=== PATIENT | male | born 1955 | race Caucasian/White ===

== ENCOUNTER 2024-01-17 08:03 | Emergency (ER) | payer OTHER, SELFPAY ==
--- NOTE | ~2024-01-17 | CT_ITS ---
EXAMINATION: CT CERVICAL SPINE WITHOUT CONTRAST CLINICAL INFORMATION: Left-sided neck pain. COMPARISON: None available. TECHNIQUE: Contiguous axial images through the cervical spine from the skull base to the thoracic inlet using 3 mm collimation with bone and soft tissue algorithm. Sagittal and coronal reformatted images acquired. This CT examination was performed using dose optimization techniques as appropriate, variously including the following: *Automated exposure control *Adjustment of mA and/or kV according to patient size (this includes techniques or standardized protocols for targeted exams where dose is matched to indication/reason for exam; i.e. extremities or head) *Use of iterative reconstruction technique DLP: 618 mGy-cm FINDINGS: Craniocervical junction is intact. C1 is intact. C2 is intact. C3 is intact. C4 is intact. C5 is intact. C6 is intact. C7 is intact. Marginal osteophyte formation at C4-5. Status post anterior cervical fusion and corpectomy C5 C7. Ankylosis of C5-6. No gross malalignment. Bilateral facet joint hypertrophy more conspicuous at C4-5 and to a lesser extent C2-3. No prevertebral compartment hematoma. Calcified plaques in the carotid bulbs and both ICAs. CT/CT cervical spine wo IV con IMPRESSION: No acute fracture or trauma-related listhesis. Multilevel spondylosis more conspicuous at C4-5. Status post ACDF at C5 7. Atherosclerosis disease. Fleischner guidelines were followed. Electronically signed by: Christiano Zhou MD 01/17/2024 11:45 AM [facility]
[2024-01-17 08:09] VITALS: BP 148/78; PULSE 70; O2SAT 98
[2024-01-17 08:12] VITALS: BP 161/70; PULSE 82; RESP 16; TEMP 36.4; O2SAT 96
[2024-01-17 08:16] VITALS: BP 161/70; PULSE 71; RESP 16; TEMP 36.4; O2SAT 97; BMI 38.7
--- NOTE | 2024-01-17 08:23 | ECG_ITS ---
Test Reason : SHOULDER PAIN Blood Pressure : / mmHG Vent. Rate : 071 BPM Atrial Rate : 071 BPM P-R Int : 194 ms QRS Dur : 112 ms QT Int : 434 ms P-R-T Axes : 045 -34 010 degrees QTc Int : 471 ms Normal sinus rhythm Left axis deviation Low voltage QRS Inferior infarct , age undetermined Abnormal ECG No previous ECGs available Referred By: Ramila Hines Electronically Signed By:JOI BALBUENA MD
--- NOTE | 2024-01-17 08:29 | ED_ITS ---
HPI - Extremity Problem General Chief complaint: Extremity Injury, Upper Stated complaint: LT SHOULDER AND ARM PAIN Time Seen by Provider: 01/17/24 08:07 Source: patient, EMS and old records reviewed Mode of arrival: EMS Limitations: no limitations History of Present Illness ED Provider: MANISHA MCDONALD Narrative: 68 yo male with PMH of thoracic aortic aneurysm under surveillance 2.7cm, ROLAN, HTN prior cervical fusion 20 years ago he notes over the weekend he hit his head on a golf cart no LOC no headache now but it sort of crunched down. On Saturday he developed L neck pain radiating into the L shoulder which reminds him of his pruior neck pain. He denies numbness, weakness to me which is different from triage. He tried tylenol with no relief. MD Complaint: other (neck pain, shoulder pain) Onset (ago): day(s) (Saturday) Pain Consistency: intermittent Location: other (neck, L shoulder) Quality: stabbing Radiation: distal Relieving factors: immobilization Exacerbating factors: range of motion and palpation Associated symptoms: denies other symptoms Context: other Related Data Previous Rx's ?Medication ?Instructions ?Recorded diazepam 5 mg tablet (Valium) 5 mg PO TID PRN muscle spasm #10 01/17/24 tabs lidocaine 5 % topical patch 1 patch topical DAILY #30 ea 01/17/24 oxycodone 5 mg tablet 5 mg PO Q4H PRN pain #18 tabs 01/17/24 Allergies Allergy/AdvReac Type Severity Reaction Status Date / Time amoxicillin AdvReac Hives Verified 01/17/24 08:17 Review of Systems 2 Review of Systems: Constitutional : No Weight loss, No Fever, No Chills, ENT/Mouth : No Hearing loss, No Ear Pain, No Nasal Congestion, No Sinus Pain, No Hoarseness, No sore throat, No Rhinorrhea, No Swallowing Difficulty Cardiovascular : No Chest Pain, No SOB Respiratory : No Cough, No Dyspnea Gastrointestinal : No Nausea, No Vomiting, No Diarrhea, No abdominal Pain, No Hematochezia, No Melena Genitourinary : No Dysuria, No Urinary Frequency, No Hematuria, No Urinary Incontinence, Musculoskeletal : positive neck pain Skin : No Skin Lesions, No rash Neuro : No Weakness, No Numbness, No Paresthesias, no loss of bowel or bladder incontinence, no saddle anesthesia all other systems are reviewed are negative PMFSH Past Medical History Attestation statement: The following information was validated with the patient. Source: old records reviewed Medical History ROLAN (obstructive sleep apnea) HTN (hypertension) Cervical vertebral fusion Social History Social History (Updated 01/17/24 @ 08:34 by Ramila Hines DO) Alcohol intake: current Alcohol type: beer Patient Tobacco Use Status: Never used Tobacco Smoked in Last 30 Days: No Use of substances other than those prescribed or required for medical reasons: No Advance Directives: No Advance Directives Information Provided: Yes Do you have a plan to hurt others: No Plan Physical Exam 2 Vital Signs: Vital Signs: Last Vital Signs Temp 97.5 F 01/17/24 08:16 Pulse 69 01/17/24 10:47 Resp 16 01/17/24 10:47 BP 143/67 H 01/17/24 10:47 Pulse Ox 96 01/17/24 10:47 O2 Del Method Room Air 01/17/24 10:47 BMI result Body Mass Index 38.7 Appearance: Alert. Oriented X3. No acute distress. Eyes: Pupils equal, round and reactive to light. ENT: Pharynx normal. Neck: Normal inspection. L neck lateral ttp no mass seen, no rash, + spurlings CVS: Normal heart rate and rhythm. Pulses normal. Respiratory: No respiratory distress. Breath sounds normal. Abdomen: Soft and nontender. Skin: Skin warm and dry. Normal skin color. Normal skin turgor. Extremities: No lower extremity edema. 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 No motor deficit. No sensory deficit. Course Course Course Narrative: multiple rounds of medications initial morphine/valium after EMS 100mcg fentanyl IV tylenol/toradol IV dilaudid patient states he cannot lay down for CT scan as he goes into spasm on the L neck area. CT scan has tried to take him again he states he cannot do the CT scan I have ordered IV ativan at this point he has no neurologic compromise on exam, states he goes into spasm when he lays flat Reevaluation(s) Reevaluation #1: patient is feeling much better after medications he and will follow up with PCP to stay with patient today Medications Administered Discontinued Medications Generic Name Dose Route Start Last Admin Trade Name Thom PRN Reason Stop Dose Admin Diazepam 5 mg 01/17/24 09:02 01/17/24 09:06 Diazepam 5 Mg Tablet PO 01/17/24 09:03 5 mg ONCE ONE Administration Hydromorphone HCl 1 mg 01/17/24 10:27 01/17/24 10:44 Hydromorphone Hcl 1 Mg/Ml Syringe IVPUSH 01/17/24 10:28 1 mg ONCE ONE Administration Protocol Acetaminophen 1,000 mg in 100 mls @ 400 mls/hr 01/17/24 09:26 01/17/24 10:44 Ofirmev IV 01/17/24 09:40 Infused ONCE ONE Infusion Ketorolac Tromethamine 15 mg 01/17/24 09:26 01/17/24 09:51 Ketorolac Tromethamine 15 Mg/Ml Vial IVPUSH 01/17/24 09:27 15 mg ONCE ONE Administration Lorazepam 1 mg 01/17/24 10:58 01/17/24 11:15 Lorazepam 2 Mg/Ml Vial IVPUSH 01/17/24 10:59 1 mg STAT STA Administration Morphine Sulfate 15 mg 01/17/24 08:24 01/17/24 08:41 Morphine Sulfate Immed Release 15 Mg Tablet PO 01/17/24 08:25 15 mg ONCE ONE Administration Medical Decision Making Medical Decision Making MDM Narrative: 68 yo male with PMH of thoracic aortic aneurysm under surveillance 2.7cm, ROLAN, HTN prior cervical fusion 20 years ago here with c/o L neck pain and L shoulder pain - which radiates down possibly after COVID shot on Saturday vs crunching injury to the neck from golf cart. At this time labs, EKG, PO morphine and CT cervical spine to evaluate hardware. Differential Diagnosis Differential Diagnoses: The differential diagnosis associated with the presentation includes cervical radiculopathy, spasm Admission/Observation Consideration of admission/observation: Escalation of care including admission/observation considered feels much better no neurologic findings can follow up as outpatient Lab Data [facility] Lab Attestation statement: I reviewed the patient's lab results. 01/17/24 08:32 01/17/24 08:31 Labs: Lab Results 01/17/24 01/17/24 Range/Units 08:31 08:32 WBC 7.3 (4.8-10.8) X10*3/uL RBC 4.90 (4.60-5.80) X10*6/uL Hgb 15.9 (14.0-18.0) g/dl Hct 44.1 (42.0-52.0) % MCV 90.0 (80.0-98.0) fL MCH 32.4 (27.0-33.0) pg MCHC 36.1 H (31.0-36.0) g/dl RDW 11.7 (11.0-16.0) % Plt Count 209 (160-400) X10*3/uL MPV 9.9 (9.4-12.4) fL Immature Gran % (Auto) 0.3 (0.0-0.4) % Neut % (Auto) 79.8 H (45-73) % Lymph % (Auto) 12.2 L (20-40) % [place] % (Auto) 6.2 (2-11) % Eos % (Auto) 0.8 (0-4) % Baso % (Auto) 0.7 (0-2) % Lymph # (Auto) 0.9 L (1.2-4.9) X10*3/uL [place] # (Auto) 0.5 (0.1-1.2) X10*3/uL Eos # (Auto) 0.1 (0.0-0.4) X10*3/uL Baso # (Auto) 0.1 (0.0-0.2) X10*3/uL Abs Immat Gran (auto) 0.02 (0.00-0.03) X10*3/uL Absolute Neuts (auto) 5.8 (2.0-8.3) x10*3/uL Absolute Nucleated RBC 0.000 (0.0-0.012) X10*3/uL Nucleated RBC % (auto) 0.0 (0.0-0.2) /100WBC Sodium 142 (135-145) mmol/L Potassium 4.1 (3.3-5.1) mmol/L Chloride 108 (96-108) mmol/L Carbon Dioxide 21 L (22-29) mmol/L Anion Gap 17 (12-20) BUN 14 (9-16) mg/dL Creatinine 0.87 (0.5-1.4) mg/dL Estim Creat Clear Calc 104.8 Estimated GFR > 60 Random Glucose 116 H (60-115) mg/dL Calcium 9.4 (8.4-10.2) mg/dL Magnesium 2.2 (1.6-2.6) mg/dL Troponin I High Sens 3.3 (<3.5-35.0) ng/L Independent Interpretation I performed an independent interpretation of an: EKG and CT Scan (hardware intact) Interpretation: Rate: 71 Rhythm: NSR [place]: left Normal P waves. Normal KAREN. Normal QRS complex. ST T wave : no SAMANTHA, prior old inf [place], q waves III inverted t waves III qTC: 471 prior studies: no acute ischemia The study has been interpreted contemporaneously by me. . Radiology Impression Discussion of test interpretation with radiology: I have reviewed the radiologist's reading. Independent Historian Clinical information obtained from an independent historian. History obtained from or confirmed by: EMS External Record Review External record reviewed: Outpatient record Prescription Management I considered prescription management with: Pain Medication Discharge Plan Discharge Clinical Impression: Cervical radiculopathy, Neck muscle spasm Patient Disposition: Home, Self-Care Instructions: Cervical Radiculopathy (ED), Muscle Spasm (ED) Additional Instructions: ekg reassuring labs reassuring including cardiac marker CT scan does not show any hardware failure no motrin until 6pm tonight okay to take tylenol at 6pm tonight please call your primary care doctor Saturday for follow up you may need MRI you were given morphine, valium, dilaudid, IV toradol and tylenol in the ER - make sure you are with responsible adult today return for any worsening symptoms or concerns. CT/CT cervical spine wo IV con IMPRESSION: No acute fracture or trauma-related listhesis. Multilevel spondylosis more conspicuous at C4-5. Status post ACDF at C5 7. Prescriptions: New lidocaine 5 % adhesive patch,medicated 1 patch topical DAILY Qty: 30 0RF Rx Instructions: leave on most painful area for up to 12 hrs diazepam [Valium] 5 mg tablet 5 mg PO TID PRN (Reason: muscle spasm) Qty: 10 0RF Rx Instructions: partial fill is okay oxycodone 5 mg tablet 5 mg PO Q4H PRN (Reason: pain) Qty: 18 0RF Rx Instructions: Partial Fill upon patient request. Referrals: Ryder Sarmiento MD [Primary Care Provider] - (call to schedule appointment Saturday) Print Language: Latvian
[2024-01-17 08:36] LABS: Basophils Absolute Auto 0.1 X10*3/uL (0.0-0.2); Basophils Percent Auto 0.7 % (0-2); Eosinophils Absolute Auto 0.1 X10*3/uL (0.0-0.4); Eosinophils Percent Auto 0.8 % (0-4); Hematocrit 44.1 % (42.0-52.0); Hemoglobin 15.9 g/dl (14.0-18.0); Imm Gran Abs Auto 0.02 X10*3/uL (0.00-0.03); Imm Gran Pct Auto 0.3 % (0.0-0.4); Lymphocytes Absolute Auto 0.9 X10*3/uL (1.2-4.9); Lymphocytes Percent Auto 12.2 % (20-40); MANUAL DIFF FLAG NO; Mean Corpuscular HGB Conc 36.1 g/dl (31.0-36.0); Mean Corpuscular Hemoglobin 32.4 pg (27.0-33.0); Mean Platelet Volume 9.9 fL (9.4-12.4); Monocytes Absolute Auto 0.5 X10*3/uL (0.1-1.2); Monocytes Percent Auto 6.2 % (2-11); Neutrophils Absolute Auto 5.8 x10*3/uL (2.0-8.3); Neutrophils Percent Auto 79.8 % (45-73); Platelet Count 209 X10*3/uL (160-400); Red Cell Distribution Width 11.7 % (11.0-16.0); White Blood Count 7.3 X10*3/uL (4.8-10.8)
--- NOTE | 2024-01-17 08:36 | PC.NURSE ---
EKG completed and labs sent as ordered
[2024-01-17] MEDS: Morphine Sulfate Immed Release 15 MG TABLET PO (08:41)
[2024-01-17 08:50] LABS: Anion Gap 17 (12-20); Blood Urea Nitrogen 14 mg/dL (9-16); Calcium 9.4 mg/dL (8.4-10.2); Carbon Dioxide 21 mmol/L (22-29); Chloride 108 mmol/L (96-108); Creatinine Clr Calc Pharmacy 104.8; Estimated Glomerular Filt Rate > 60; Glucose Random 116 mg/dL (60-115); Magnesium 2.2 mg/dL (1.6-2.6); Potassium 4.1 mmol/L (3.3-5.1); Sodium 142 mmol/L (135-145)
[2024-01-17 09:00] LABS: Troponin-I High Sensitivity 3.3 ng/L (<3.5-35.0)
[2024-01-17] MEDS: diazePAM 5 MG TABLET PO (09:06)
[2024-01-17] MEDS: Ketorolac Tromethamine 15 MG/ML VIAL IVPUSH (09:51)
[2024-01-17] MEDS: Acetaminophen 1,000 MG/100 ML PIGGYBACK 400 MG IV (09:51)
[2024-01-17 10:44] VITALS: RESP 16
[2024-01-17] MEDS: HYDROmorphone HCl 1 MG/ML SYRINGE IVPUSH (10:44)
[2024-01-17 10:47] VITALS: BP 143/67; PULSE 69; RESP 16; O2SAT 96
[2024-01-17] MEDS: LORazepam 2 MG/ML VIAL 1 MG IVPUSH (11:15)
[2024-01-17 12:30] VITALS: BP 140/60; PULSE 70; RESP 20; TEMP 36.4; O2SAT 96
== END 2024-01-17 12:32 | disposition home or self-care (01) ==
PROVIDERS: Emergency Provider Emergency Medicine; PCP Internal Medicine
DX: M54.12 Radiculopathy, cervical region (principal); M62.838 Other muscle spasm; M54.2 Cervicalgia; I10 Essential (primary) hypertension
CPT/HCPCS: 36415; 72125; 80048; 83735; 84484; 85025; 93005; 96365; 96375; 99284; 99285; J0131; J1171; J1885; J2060

== ENCOUNTER → 2024-01-17 08:23 | Outpatient (BNV) | payer OTHER, SELFPAY | PROVIDERS: Emergency Provider Emergency Medicine; PCP Internal Medicine; Visit Provider Radiology Diagnostic Radiology | DX: M54.2 Cervicalgia (principal) | CPT/HCPCS: 72125 ==

== ENCOUNTER → 2024-01-17 08:23 | Outpatient (BNV) | payer OTHER, SELFPAY | PROVIDERS: Emergency Provider Emergency Medicine; PCP Internal Medicine; Visit Provider Internal Medicine Cardiovascular Disease | DX: R94.31 Abnormal electrocardiogram [ECG] [EKG] (principal) | CPT/HCPCS: 93010 ==